=== PATIENT | female | born 2000 | race American Indian/Alaskan Native ===

== ENCOUNTER 2021-02-08 06:06 | Emergency (ER) | payer SELFPAY ==
[2021-02-08 07:46] LABS: Bacteria,Urine 1+ /HPF (Negative); Bilirubin,Urine NEG (Negative); Blood,Urine MOD (Negative); Color,Urine Yellow (Yellow); Mucus,Urine 2+ /HPF
[2021-02-08 07:49] LABS: WBC,Urine > 182.0 /HPF (0.0-6.0)
[2021-02-08] MEDS ORDERED: ACETAMINOPHEN 500 MG TAB PO ONE (08:11)
[2021-02-08] MEDS ORDERED: cefTRIAXone/NS 1 GM/50 ML 1 GM/50 ML BAG IV ONE (08:11)
[2021-02-08] MEDS ORDERED: SODIUM CHLORIDE 0.9% 1000 ML 1,000 ML IV ONE (08:11)
--- NOTE | 2021-02-08 09:16 | Emergency Department Report ---
ED HPI - General Chief complaint: Abdominal Pain Stated complaint: POSS MISCARRIAGE/18WKS PREG Time Seen by Provider: 02/08/21 07:48 Source: patient Mode of arrival: Ambulatory Limitations: No Limitations - History of Present Illness Initial comments: This is a 20-year-old female G4, P3 nontoxic, well nourished in appearance, no acute signs of distress presents to the ED with c/o of right upper quadrant abdominal pain and pelvic pain 2 weeks. Patient stated she is currently about 18 weeks . Patient stated has some radiation to right flank. Patient denies any vaginal bleeding. Denies any vaginal discharge. Denies any urinary symptoms. Denies any nausea vomiting. Patient describes abdominal and pelvic pain as cramping and aching with level of 3/10. Patient denies chest pain, short of breath, fever, hemoptysis, blood in stool, chills, headache, stiff neck, numbness or tingling. Patient denies any diarrhea or constipation. Denies any blood in stool. Patient denies any recent travels. Patient denies any allergies or significant past medical history. Patient does follow-up with a PEDIATRIC REGISTERED NURSE. Patient stated has normal low blood pressure. MD Complaint: abdominal pain, other (Pelvic pain) -: week(s) Location: pelvis, abdomen Radiation: R flank Severity: mild Severity scale (0 -10): 3 Quality: cramping, aching Consistency: intermittent Improves with: none Worsens with: none Associated symptoms: abdominal pain. denies: nausea/vomiting, vaginal bleeding, vaginal discharge, dysuria, headache, vision changes, malaise, dysparuenia, rash, seizure, shortness of breath, syncope, weakness Vaginal bleeding: none :: Yes Number of weeks : 18 Pre-lazaro care: followed by OB - Related Data Previous Rx's Medication Instructions Recorded Last Taken Type cephALEXin [Keflex] 500 mg PO Q6HR #28 capsule 02/08/21 Unknown Rx Allergies Allergy/AdvReac Type Severity Reaction Status Date / Time No Known Allergies Allergy Unverified 02/08/21 07:11 ED Review of Systems ROS: Stated complaint: POSS MISCARRIAGE/18WKS PREG Other details as noted in HPI Constitutional: denies: chills, fever Eyes: denies: eye pain, eye discharge, vision change ENT: denies: ear pain, throat pain Respiratory: denies: cough, shortness of breath, wheezing Cardiovascular: denies: chest pain, palpitations Endocrine: no symptoms reported Gastrointestinal: abdominal pain. denies: nausea, vomiting, diarrhea, constipation, hematemesis, melena, hematochezia Genitourinary: denies: urgency, dysuria, discharge Musculoskeletal: denies: back pain, joint swelling, arthralgia Skin: denies: rash, lesions Neurological: denies: headache, weakness, paresthesias Psychiatric: denies: anxiety, depression Hematological/Lymphatic: denies: easy bleeding, easy bruising ED Past Medical Hx - Past Medical History Previous Medical History?: Yes Hx Seizures: Yes - Surgical History Past Surgical History?: No - Medications Home Medications: Home Medications Medication Instructions Recorded Confirmed Last Taken Type cephALEXin [Keflex] 500 mg PO Q6HR #28 capsule 02/08/21 Unknown Rx ED Physical Exam - General Limitations: No Limitations General appearance: alert, in no apparent distress - Head Head exam: Present: atraumatic, normocephalic - Eye Eye exam: Present: normal appearance - Neck Neck exam: Present: normal inspection, full ROM. Absent: tenderness, meningismus, lymphadenopathy - Respiratory Respiratory exam: Present: normal lung sounds bilaterally. Absent: respiratory distress, wheezes, rales, rhonchi, stridor, chest wall tenderness, accessory muscle use, decreased breath sounds, prolonged expiratory - Cardiovascular Cardiovascular Exam: Present: regular rate, normal rhythm, normal heart sounds. Absent: bradycardia, tachycardia, irregular rhythm, systolic murmur, diastolic murmur, rubs, gallop - GI/Abdominal GI/Abdominal exam: Present: soft, normal bowel sounds. Absent: distended, t enderness, guarding, rebound, rigid, diminished bowel sounds - Extremities Exam Extremities exam: Present: normal inspection, full ROM - Back Exam Back exam: Present: normal inspection, full ROM. Absent: tenderness, CVA t enderness (R), CVA tenderness (L), muscle spasm, paraspinal tenderness, vertebral tenderness, rash noted - Neurological Exam Neurological exam: Present: alert, oriented X3, normal gait - Psychiatric Psychiatric exam: Present: normal affect, normal mood - Skin Skin exam: Present: warm, dry, intact, normal color. Absent: rash ED Course Vital Signs 02/08/21 02/08/21 02/08/21 06:22 07:07 08:50 Temperature 98.4 F 98.4 F Pulse Rate 98 H 98 H Respiratory 18 16 Rate Blood Pressure 98/54 Blood Pressure 98/54 [Right] O2 Sat by Pulse 98 Oximetry 02/08/21 02/08/21 10:07 10:09 Temperature Pulse Rate 77 Respiratory 15 15 Rate Blood Pressure 91/47 Blood Pressure [Right] O2 Sat by Pulse 98 Oximetry - Reevaluation(s) Reevaluation #1: 02/08/21 09:16 Patient is speaking in full sentences with no signs of distress noted. - Consultations Consultation #1: 02/08/21 11:53 Patient has been consulted with Erick Ferrara about patient history, physical exam, and labs/imaging results and no further imaging studies need and patient can be discharged on Keflex with OBGYN and urology follow-up. ED Medical Decision Making - Lab Data Result diagrams: 02/08/21 08:43 02/08/21 08:43 Lab Results 02/08/21 02/08/21 02/08/21 Range/Units 08:43 08:43 08:43 WBC 10.7 (4.5-11.0) K/mm3 RBC 3.69 (3.65-5.03) M/mm3 Hgb 11.0 (10.1-14.3) gm/dl Hct 32.0 (30.3-42.9) % MCV 87 (79-97) fl MCH 30 (28-32) pg MCHC 34 (30-34) % RDW 15.6 H (13.2-15.2) % Plt Count 401 (140-440) K/mm3 Lymph % (Auto) 10.3 L (13.4-35.0) % [place] % (Auto) 5.9 (0.0-7.3) % Eos % (Auto) 0.1 (0.0-4.3) % Baso % (Auto) 0.2 (0.0-1.8) % Lymph # (Auto) 1.1 L (1.2-5.4) K/mm3 [place] # (Auto) 0.6 (0.0-0.8) K/mm3 Eos # (Auto) 0.0 (0.0-0.4) K/mm3 Baso # (Auto) 0.0 (0.0-0.1) K/mm3 Seg Neutrophils % 83.5 H (40.0-70.0) % Seg Neutrophils # 9.0 H (1.8-7.7) K/mm3 Sodium 135 L (137-145) mmol/L Potassium 3.6 (3.6-5.0) mmol/L Chloride 99.9 (98-107) mmol/L Carbon Dioxide 24 (22-30) mmol/L Anion Gap 15 mmol/L BUN 6 L (7-17) mg/dL Creatinine 0.5 L (0.6-1.2) mg/dL Estimated GFR > 60 ml/min BUN/Creatinine Ratio 12 % Glucose 97 (65-100) mg/dL Calcium 9.3 (8.4-10.2) mg/dL Total Bilirubin 0.20 (0.1-1.2) mg/dL AST 14 (5-40) units/L ALT < 5 L (7-56) units/L Alkaline Phosphatase 75 (35-129) units/L Total Protein 7.8 (6.3-8.2) g/dL Albumin 3.4 L (3.9-5) g/dL Albumin/Globulin Ratio 0.8 % Lipase 29 (13-60) units/L HCG, Quant 45488 H (0-4) mIU/mL Urine Color (Yellow) Urine Turbidity (Clear) Urine pH (5.0-7.0) Ur Specific [place] (1.003-1.030) Urine Protein (Negative) mg/dL Urine Glucose (UA) (Negative) mg/dL Urine Ketones (Negative) mg/dL Urine Blood (Negative) Urine Nitrite (Negative) Urine Bilirubin (Negative) Urine Urobilinogen (<2.0) mg/dL Ur Leukocyte Esterase (Negative) Urine WBC (Auto) (0.0-6.0) /HPF Urine RBC (Auto) (0.0-6.0) /HPF U Epithel Cells (Auto) (0-13.0) /HPF Urine Bacteria (Auto) (Negative) /HPF Urine Mucus /HPF 02/08/21 Range/Units Unknown WBC (4.5-11.0) K/mm3 RBC (3.65-5.03) M/mm3 Hgb (10.1-14.3) gm/dl Hct (30.3-42.9) % MCV (79-97) fl MCH (28-32) pg MCHC (30-34) % RDW (13.2-15.2) % Plt Count (140-440) K/mm3 Lymph % (Auto) (13.4-35.0) % [place] % (Auto) (0.0-7.3) % Eos % (Auto) (0.0-4.3) % Baso % (Auto) (0.0-1.8) % Lymph # (Auto) (1.2-5.4) K/mm3 [place] # (Auto) (0.0-0.8) K/mm3 Eos # (Auto) (0.0-0.4) K/mm3 Baso # (Auto) (0.0-0.1) K/mm3 Seg Neutrophils % (40.0-70.0) % Seg Neutrophils # (1.8-7.7) K/mm3 Sodium (137-145) mmol/L Potassium (3.6-5.0) mmol/L Chloride (98-107) mmol/L Carbon Dioxide (22-30) mmol/L Anion Gap mmol/L BUN (7-17) mg/dL Creatinine (0.6-1.2) mg/dL Estimated GFR ml/min BUN/Creatinine Ratio % Glucose (65-100) mg/dL Calcium (8.4-10.2) mg/dL Total Bilirubin (0.1-1.2) mg/dL AST (5-40) units/L ALT (7-56) units/L Alkaline Phosphatase (35-129) units/L Total Protein (6.3-8.2) g/dL Albumin (3.9-5) g/dL Albumin/Globulin Ratio % Lipase (13-60) units/L HCG, Quant (0-4) mIU/mL Urine Color Yellow (Yellow) Urine Turbidity Cloudy (Clear) Urine pH 7.0 (5.0-7.0) Ur Specific [place] 1.015 (1.003-1.030) Urine Protein 30 mg/dl (Negative) mg/dL Urine Glucose (UA) Neg (Negative) mg/dL Urine Ketones Neg (Negative) mg/dL Urine Blood Mod (Negative) Urine Nitrite Pos (Negative) Urine Bilirubin Neg (Negative) Urine Urobilinogen 4.0 (<2.0) mg/dL Ur Leukocyte Esterase Lg (Negative) Urine WBC (Auto) > 182.0 H (0.0-6.0) /HPF Urine RBC (Auto) 20.0 (0.0-6.0) /HPF U Epithel Cells (Auto) 2.0 (0-13.0) /HPF Urine Bacteria (Auto) 1+ (Negative) /HPF Urine Mucus 2+ /HPF - Radiology Data [facility], [place] [address] [place] [address] Ultrasound Report Signed Patient: SAMSON DILLON MR#: [id number] 1 : 2000 Acct:[id number] Age/Sex: 20 / F ADM Date: 02/08/21 Loc: ED Attending Dr: Ordering Physician: GISSEL LEE NP Date of Service: 02/08/21 Procedure(s): US OB >= 14 weeks Fetus Accession Number(s): [id number] cc: GISSEL LEE NP ULTRASOUND OBSTETRIC INDICATION / CLINICAL INFORMATION: RUQ pain and pelvic pain. Clinical Gestational Age (GA) in weeks, days: 18, 0 TECHNIQUE: Transabdominal. COMPARISON: None available. FINDINGS: Single intrauterine . Biparietal Diameter = 4.3 cm = 19, 0 weeks, days Head Circumference = 15.5 cm = 18, 3 weeks, days Abdominal Circumference = 12.4 cm = 18, 0 weeks, days Femur Length = 2.7 cm = 18, 1 weeks, days Average Ultrasound Age (AUA) = 18, 3 weeks, days Heart Rate: 152 beats per minute. Estimated Weight in grams (if calculated): 227 Position: cephalic. Cervix: closed. Length in cm (if measured): 3.7 Placenta: anterior and free of the os. Amniotic Fluid Volume: normal Maternal Adnexa: No significant abnormality. IMPRESSION: 1. Single, living intrauterine with estimated sonographic age of 18, 3 weeks, days. 2. No significant sonographic abnormality. Signer Name: Tyrel Berry MD Signed: 02/08/2021 9:53 AM Workstation Name: [id number] Transcribed By: SS Dictated By: Tyrel Berry MD Electronically Authenticated By: Tyrel Berry MD Signed Date/Time: 06952 DD/ 8 TD/TT: [facility], [place] [address] [place] [address] Ultrasound Report Signed Patient: SAMSON DILLON MR#: [id number] 1 : 2000 Acct:[id number] Age/Sex: 20 / F ADM Date: 02/08/21 Loc: ED Attending Dr: Ordering Physician: GISSEL LEE NP Date of Service: 02/08/21 Procedure(s): US abdomen limited Accession Number(s): [id number] cc: GISSEL LEE NP ULTRASOUND ABDOMEN, LIMITED (RIGHT UPPER QUADRANT) INDICATION: RUQ pain and pelvic pain. COMPARISON: None available. FINDINGS: Pancreas: Visualized portion shows no significant abnormality. Liver: Normal. Gallbladder: Normal. Bile ducts: Normal. Common Bile Duct measures 2 mm. Free fluid: None. Additional Findings: There is mild right hydronephrosis. IMPRESSION: 1. There is mild right hydronephrosis. The patient is 18 weeks which explains the degree of hydronephrosis. Signer Name: Tyrel Berry MD Signed: 02/08/2021 9:51 AM Workstation Name: [id number] Transcribed By: SS Dictated By: Tyrel Berry MD Electronically Authenticated By: Tyrel Berry MD Signed Date/Time: 02/08/21950 DD/ 7 TD/TT: - Medical Decision Making 20-year-old female that presents with pelvic pain with and UTI and hydronephrosis. Patient is stable and was examined by me. Patient was consulted with my attending. Patient was notified of the CT and lab results with no questions noted by the patient. Patient did receive Rocephin IV as initial treatment and will be discharged with Keflex. A p.o. challenge has been obtained patient tolerated well with no nausea vomiting. Patient was instructed to follow-up with a PEDIATRIC REGISTERED NURSE and urology doctor in 2 days or if symptoms worsen and continue return to emergency room as soon as possible. At time of discharge, the patient does not seem toxic or ill in appearance. No acute signs of distress noted. Patient agrees to discharge treatment plan of care. No further questions noted by the patient. Critical care attestation.: If time is entered above; I have spent that time in minutes in the direct care of this critically ill patient, excluding procedure time. ED Disposition Clinical Impression: Pelvic pain during UTI (urinary tract infection) Qualifiers: Urinary tract infection type: acute cystitis Hematuria presence: with hematuria Qualified Code(s): N30.01 - Acute cystitis with hematuria Hydronephrosis Qualifiers: Hydronephrosis type: unspecified Qualified Code(s): N13.30 - Unspecified hydronephrosis Disposition: TO HOME OR SELFCARE Is pt being admited?: No Does the pt Need Aspirin: No Condition: Stable Instructions: Abdominal Pain (ED) Additional Instructions: Follow-up with a PEDIATRIC REGISTERED NURSE and urology doctor in 2 days or if symptoms worsen and continue return to emergency room as soon as possible. Prescriptions: cephALEXin [Keflex] 500 mg PO Q6HR #28 capsule Referrals: TONY MORILLO MD [Staff Physician] - 02/10/21 PRIMARY CAREMD [Primary Care Provider] - 02/10/21 Forms: Work/School Release Form(ED) Time of Disposition: 12:00
[2021-02-08 09:40] LABS: Basophils % (Auto) 0.2 % (0.0-1.8); Eosinophils % (Auto) 0.1 % (0.0-4.3); Lymphocytes # (Auto) 1.1 K/mm3 (1.2-5.4); Lymphocytes % (Auto) 10.3 % (13.4-35.0); Mean Corpuscular HGB Conc 34 % (30-34); Mean Corpuscular Volume 87 fl (79-97); Monocytes # (Auto) 0.6 K/mm3 (0.0-0.8); Monocytes % (Auto) 5.9 % (0.0-7.3); Platelet Count 401 K/mm3 (140-440); Red Blood Count 3.69 M/mm3 (3.65-5.03); Red Cell Distribution Width 15.6 % (13.2-15.2)
--- NOTE | 2021-02-08 09:55 | Ultrasound Report ---
ULTRASOUND ABDOMEN, LIMITED (RIGHT UPPER QUADRANT) INDICATION: RUQ pain and pelvic pain. COMPARISON: None available. FINDINGS: Pancreas: Visualized portion shows no significant abnormality. Liver: Normal. Gallbladder: Normal. Bile ducts: Normal. Common Bile Duct measures 2 mm. Free fluid: None. Additional Findings: There is mild right hydronephrosis. IMPRESSION: 1. There is mild right hydronephrosis. The patient is 18 weeks which explains the degree of hydronephrosis. Signer Name: Tyrel Berry MD Signed: 02/08/2021 9:51 AM Workstation Name: [id number]
--- NOTE | 2021-02-08 09:57 | Ultrasound Report ---
ULTRASOUND OBSTETRIC INDICATION / CLINICAL INFORMATION: RUQ pain and pelvic pain. Clinical Gestational Age (GA) in weeks, days: 18, 0 TECHNIQUE: Transabdominal. COMPARISON: None available. FINDINGS: Single intrauterine . Biparietal Diameter = 4.3 cm = 19, 0 weeks, days Head Circumference = 15.5 cm = 18, 3 weeks, days Abdominal Circumference = 12.4 cm = 18, 0 weeks, days Femur Length = 2.7 cm = 18, 1 weeks, days Average Ultrasound Age (AUA) = 18, 3 weeks, days Heart Rate: 152 beats per minute. Estimated Weight in grams (if calculated): 227 Position: cephalic. Cervix: closed. Length in cm (if measured): 3.7 Placenta: anterior and free of the os. Amniotic Fluid Volume: normal Maternal Adnexa: No significant abnormality. IMPRESSION: 1. Single, living intrauterine with estimated sonographic age of 18, 3 weeks, days. 2. No significant sonographic abnormality. Signer Name: Tyrel Berry MD Signed: 02/08/2021 9:53 AM Workstation Name: [id number]
[2021-02-08 10:16] LABS: Albumin 3.4 g/dL (3.9-5); Blood Urea Nitrogen 6 mg/dL (7-17); Calcium 9.3 mg/dL (8.4-10.2); Hemolysis Index 1
[2021-02-08 10:19] LABS: Alanine Aminotransferase < 5 units/L (7-56); BUN/Creatinine Ratio 12
[2021-02-08 12:26] VITALS: BP 104/58
== END 2021-02-08 12:25 | disposition home or self-care (01) ==
LOC: ED 06:06
DX: O23.42 Unspecified infection of urinary tract in pregnancy, second trimester (principal); O26.892 Other specified pregnancy related conditions, second trimester; N13.30 Unspecified hydronephrosis; Z86.69 Personal history of other diseases of the nervous system and sense organs; Z79.899 Other long term (current) drug therapy; Z3A.18 18 weeks gestation of pregnancy
CPT/HCPCS: 36415; 76705; 76805; 80053; 81001; 83690; 84702; 85025; 96365; 99284; J0696; J7030

== ENCOUNTER 2021-03-28 10:07 | Outpatient (CLI) | payer MEDICAID ==
[2021-03-28 10:48] VITALS: BP 97/52
[2021-03-28] MEDS ORDERED: LACTATED RINGERS 500 ML IV ONE (11:30)
[2021-03-28 11:31] LABS: Bacteria,Urine 1+ /HPF (Negative); Bilirubin,Urine NEG (Negative); Blood,Urine LG (Negative); Color,Urine Yellow (Yellow); Mucus,Urine 3+ /HPF; Urobilinogen,Urine < 2.0 mg/dL (<2.0)
[2021-03-28] MEDS ORDERED: ACETAMINOPHEN 500 MG TAB PO ONE (12:00)
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
== END 2021-03-28 15:37 | disposition home or self-care (01) ==
LOC: TRG 10:07 → APU 10:09 → TRG 15:37
PROVIDERS: ATTEND Obstetrics & Gynecology
DX: O26.892 Other specified pregnancy related conditions, second trimester (principal); R10.2 Pelvic and perineal pain; R10.11 Right upper quadrant pain; Z3A.24 24 weeks gestation of pregnancy
CPT/HCPCS: 59025; 76815; 81001; 85460; 86900; 86901; 87076; 87086; 87186